=== PATIENT | female | born 1980 | race Caucasian/White ===

== ENCOUNTER 2017-09-17 10:39 | Emergency (ER) | payer OTHER ==
[~2017-09-17] VITALS: Ht 152.4 cm; Wt 62.6 kg
[2017-09-17 10:44] VITALS: Ht 152.4 cm; Wt 62.6 kg
[2017-09-17 13:02] VITALS: BP 133/72
== END 2017-09-17 13:02 | disposition home or self-care (01) ==
LOC: ED 10:39
DX: S06.0X0A Concussion without loss of consciousness, initial encounter (principal); X50.9XXA Other and unspecified overexertion or strenuous movements or postures, initial encounter; Y93.89 Activity, other specified; Y92.89 Other specified places as the place of occurrence of the external cause; Y99.8 Other external cause status